=== PATIENT | female | born 1980 | race Caucasian/White ===

== ENCOUNTER 2016-08-30 07:34 | Inpatient (IN) | payer MEDICARE, OTHER ==
[~2016-08-30] VITALS: Ht 162.6 cm; Wt 79.0 kg
[2016-08-30 10:31] LABS: HEMOGLOBIN 11.1 gm/dl (12.3-15.3); RED BLOOD COUNT 3.94 M/UL (4.00-5.10)
[2016-08-30 11:04] LABS: BUN/CREATININE RATIO 41 (0-10)
[2016-08-30] MEDS ORDERED: GLUCOPHAGE1000 MG GT (16:29)
[2016-08-30] MEDS ORDERED: OLANZAPINE5 MG GT (16:29)
[2016-08-30] MEDS ORDERED: LATUDA40 MG GT (16:30)
[2016-08-30] MEDS ORDERED: TRAZODONE HCL150 MG GT (16:30)
[2016-08-30] MEDS ORDERED: METOPROLOL TART50 MG GT (16:31)
[2016-08-30] MEDS ORDERED: LISINOPRIL10 MG GT ×2 (16:33→16:34)
[2016-08-30] MEDS ORDERED: PRAVASTATIN SOD40 MG GT (16:35)
[2016-08-30] MEDS ORDERED: PLAQUENIL 200200 MG GT (16:35)
[2016-08-30] MEDS ORDERED: BENADRYL 25MG C25 MG GT (16:36)
[2016-08-30] MEDS ORDERED: OMEPRAZOLE20 M1 GT (16:36)
[2016-08-30] MEDS ORDERED: ALBUTEROL0.63 MG/3 INH (16:40)
[2016-08-30 19:45] LABS: BUN/CREATININE RATIO 42 (0-10)
[2016-08-31 04:18] LABS: HEMOGLOBIN 9.2 gm/dl (12.3-15.3)
[2016-08-31 04:19] LABS: RED BLOOD COUNT 3.31 M/UL (4.00-5.10); WHITE BLOOD COUNT 4.4 K/UL (4.5-11.0)
[2016-08-31 04:46] LABS: BUN/CREATININE RATIO 40 (0-10)
[2016-09-01 05:40] LABS: HEMOGLOBIN 9.1 gm/dl (12.3-15.3); RED BLOOD COUNT 3.29 M/UL (4.00-5.10); WHITE BLOOD COUNT 3.7 K/UL (4.5-11.0)
[2016-09-01 06:06] LABS: BUN/CREATININE RATIO 43 (0-10)
[2016-09-02 03:52] LABS: HEMOGLOBIN 9.2 gm/dl (12.3-15.3); RED BLOOD COUNT 3.28 M/UL (4.00-5.10)
[2016-09-02 04:00] LABS: WHITE BLOOD COUNT 5.6 K/UL (4.5-11.0)
[2016-09-02 05:33] LABS: BUN/CREATININE RATIO 40 (0-10)
[2016-09-03 04:49] LABS: HEMOGLOBIN 9.9 gm/dl (12.3-15.3); RED BLOOD COUNT 3.6 M/UL (4.00-5.10); WHITE BLOOD COUNT 6.6 K/UL (4.5-11.0)
[2016-09-04 03:57] LABS: HEMOGLOBIN 9.7 gm/dl (12.3-15.3); RED BLOOD COUNT 3.49 M/UL (4.00-5.10)
[2016-09-04 04:12] LABS: BUN/CREATININE RATIO 38 (0-10)
[2016-09-05] MEDS ORDERED: CEFTIN250 MG/5 M GT (13:52)
[2016-09-05] MEDS ORDERED: ISOSOURCE 1.5250 ML PO (13:58)
== END 2016-09-05 16:21 | disposition home health service (06) | DRG 193 ==
LOC: ER1 07:34 → ZEROF 12:21 → PROG CARE 18:37 → ZEROF 08-31 11:21 → PROG CARE 09-05 16:21
PROVIDERS: Emergency Medicine; Physician Assistant Medical; ADMIT Internal Medicine
DX: J18.9 Pneumonia, unspecified organism (principal); J96.00 Acute respiratory failure, unspecified whether with hypoxia or hypercapnia; I50.42 Chronic combined systolic (congestive) and diastolic (congestive) heart failure; I42.8 Other cardiomyopathies; F71 Moderate intellectual disabilities; I11.0 Hypertensive heart disease with heart failure; E87.5 Hyperkalemia; I49.5 Sick sinus syndrome; M32.9 Systemic lupus erythematosus, unspecified; E11.9 Type 2 diabetes mellitus without complications; K31.84 Gastroparesis; E78.5 Hyperlipidemia, unspecified; E83.42 Hypomagnesemia; H91.3 Deaf nonspeaking, not elsewhere classified; K59.00 Constipation, unspecified; Z86.73 Personal history of transient ischemic attack (TIA), and cerebral infarction without residual deficits; Z91.81 History of falling; Z93.1 Gastrostomy status; Z79.84 Long term (current) use of oral hypoglycemic drugs; Z79.899 Other long term (current) drug therapy
CPT/HCPCS: 36415; 51702; 71010; 78264; 80048; 80053; 81001; 82803; 82962; 83605; 83735; 84484; 85025; 85027; 85379; 87040; 87081; 87880; 93005; 94640; 94664; 96361; 96365; 96375; 99285; A9541; J0456; J0696; J2543; J3370; J7030; J7050; Q0163; Q9963